=== PATIENT | female | born 1995 | race Caucasian/White ===

== ENCOUNTER 2019-11-26 15:02 | Emergency (ER) | payer OTHER, SELFPAY ==
[2019-11-26 15:29] VITALS: BP 122/78; PULSE 87; RESP 21; TEMP 36.7; O2SAT 100
[2019-11-26 15:38] VITALS: PULSE 78
--- NOTE | 2019-11-26 16:02 | ECG_ITS ---
Measurements Intervals [place] Rate: 86 P: -5 [place]: 171 QRS: 78 QRSD: 85 T: 63 QT: 354 QTc: 425 Interpretive Statements SINUS RHYTHM BASELINE ARTIFACT- I, II, III, AVF NORMAL ECG Electronically Signed On 11-26-2019 16:09:47 CDT by Lele Lorenzo D.O.
[2019-11-26 16:45] VITALS: BP 111/69; BP 114/74; PULSE 87; PULSE 91
[2019-11-26 16:46] VITALS: BP 116/82; PULSE 120
[2019-11-26] MEDS: ONDANSETRON INJ 4 MG/2 ML VIAL IV PUSH (16:48)
[2019-11-26] MEDS: SODIUM CHLORIDE 0.9% IV 1,000 ML 999 ML IV CONT (16:48)
[2019-11-26] MEDS: FAMOTIDINE 20 MG/2 ML VIAL IV PUSH (16:48)
--- NOTE | 2019-11-26 17:30 | ED.SYNCOPE ---
HPI - Syncope General Chief Complaint: Syncope <Kunal Pacheco PA-C - Last Filed: 11/26/19 17:52> Stated Complaint: SYNCOPAL AFTER DONATING BLOOD <NESTOR Mcintosh Last Filed: 11/26/19 17:52> Time Seen by Provider: 11/26/19 15:31 <NESTOR Mcintosh Last Filed: 11/26/19 17:52> Source: patient <NESTOR Mcintosh Last Filed: 11/26/19 17:52> Mode of arrival: ambulatory <NESTOR Mcintosh Last Filed: 11/26/19 17:52> Limitations: no limitations <NESTOR Mcintosh Last Filed: 11/26/19 17:52> History of Present Illness HPI narrative: Patient is a 24-year-old female who presents to emergency department for evaluation of syncope that occurred after getting blood had a syncopal episode and then had a few episodes of emesis followed by syncope patient with history of vasovagal syncope but typically occurs after emesis patient on arrival to emergency department notes some nausea but is feeling much better at this time patient denies injury or trauma patient otherwise resting comfortably as noted patient has not taken anything for her symptoms other than Zofran given by EMS in route patient on arrival resting comfortably in the room in no distress notes that she had felt fine this morning prior to giving blood <NESTOR Mcintosh Last Filed: 11/26/19 17:52> Related Data Allergies/Adverse Reactions: Allergies Allergy/AdvReac Type Severity Reaction Status Date / Time No Known Allergies Allergy Unverified 11/26/19 15:42 <Kunal Pacheco PA-C - Last Filed: 11/26/19 17:52> Review of Systems Review of Systems: All systems reviewed & are unremarkable except as noted in HPI and below <Kunal Pacheco PA-C - Last Filed: 11/26/19 17:52> PMFSH Social History Social History: Social History Gender identity (if verbalized by the patient): Female <NESTOR Mcintosh Last Filed: 11/26/19 17:52> Exam Narrative: Exam Narrative: GENERAL: Well-appearing, well-nourished, and in no acute distress. HEAD: Normocephalic, atraumatic. EYES: PERRLA and EOMI. ENT: Nares clear, no rhinorrhea or epistaxis. Mucous membranes moist. CHEST: Clear to auscultation. No respiratory distress. No wheezes rales or rhonchi HEART: Regular rate and rhythm. No murmur heard. Normal peripheral pulses. ABDOMEN: Soft, nontender, nondistended EXTREMITIES: Normal range of motion. No edema. SKIN: Warm, dry, no rash. NEURO: No focal deficits. Alert and oriented x3. PSYCH: Normal mood and affect. <Kunal Pacheco PA-C - Last Filed: 11/26/19 17:52> Course Course Emergency Course: Patient in the room in no distress will be discharged home feeling much better at this time was hydrated in the emergency department <Kunal Pacheco PA-C - Last Filed: 11/26/19 17:52> Vital Signs Vital signs: Vital Signs Temperature 98.0 F 11/26/19 15:29 Pulse Rate 87 11/26/19 15:29 Respiratory Rate 21 H 11/26/19 15:29 Blood Pressure 122/78 11/26/19 15:29 Pulse Oximetry 100 11/26/19 15:29 Temperature 98.0 F 11/26/19 15:29 Pulse Rate 82 11/26/19 18:19 Respiratory Rate 16 11/26/19 18:19 Blood Pressure 111/66 11/26/19 18:19 Pulse Oximetry 99 11/26/19 18:19 <NESTOR Mcintosh Last Filed: 11/26/19 17:52> Vital Signs Temperature 98.0 F 11/26/19 15:29 Pulse Rate 87 11/26/19 15:29 Respiratory Rate 21 H 11/26/19 15:29 Blood Pressure 122/78 11/26/19 15:29 Pulse Oximetry 100 11/26/19 15:29 Temperature 98.0 F 11/26/19 15:29 Pulse Rate 82 11/26/19 18:19 Respiratory Rate 16 11/26/19 18:19 Blood Pressure 111/66 11/26/19 18:19 Pulse Oximetry 99 11/26/19 18:19 <Manuela Vela MD - Last Filed: 11/26/19 19:03> MDM - Syncope MDM Narrative Medical decision making narrative: Patient with likely vasovagal syncope in the room in no di
[2019-11-26 18:19] VITALS: BP 111/66; PULSE 82; RESP 16; O2SAT 99
== END 2019-11-26 18:19 | disposition home or self-care (01) ==
PROVIDERS: Emergency Provider General Practice
DX: R55 Syncope and collapse (principal)
CPT/HCPCS: 93005; 96361; 96374; 96375; 99284; J2405; J7030